=== PATIENT | male | born 1965 | race Hispanic/Latino ===

== ENCOUNTER → 2018-07-12 | Outpatient (CLI) | payer OTHER ==
[~2018-07-12] MED LIST: COZAAR50 MG; METFORMIN HCL500 MG
--- NOTE | 2018-07-15 08:13 | Diagnostic Imaging Report ---
EXAM: KNEE RIGHT 1-2 VIEWS DATE: 07/12/2018 4:19 PM INDICATION: Pain COMPARISON: None FINDINGS: 2 views of the right knee show no displaced fracture or dislocation. There are mild tricompartmental degenerative changes with slight narrowing of the lateral joint space. Small suprapatellar effusion. IMPRESSION: No acute bony abnormality. Mild tricompartmental degenerative change with slight narrowing of the lateral joint space. Signed by: Dr. Ronald Watts M.D. on 07/15/2018 8:09 AM
== END ==
LOC: RAD 16:13
PROVIDERS: ATTEND Family Medicine
DX: M25.561 Pain in right knee (principal)